=== PATIENT | female | born 1950 | race Caucasian/White ===

== ENCOUNTER → 2016-03-26 | Outpatient (CLI) | payer OTHER ==
--- NOTE | 2016-03-26 07:41 | DIAGNOSTIC IMAGING REPORT ---
(BARIUM SWALLOW) ESOPHAGUS CLINICAL HISTORY: Dysphagia. Reflux. COMPARISON STUDY: None FLUOROSCOPY TIME: 0.9 minutes. FINDINGS: 25 fluoroscopic images were obtained. There was a small hiatal hernia. A 13 mm barium tablet passed freely into the stomach. No esophageal mass or stricture was identified. A small hiatal hernia was noted. Mild esophageal dysmotility was noted. No reflux was elicited. IMPRESSION: 1. Mild esophageal dysmotility. 2. Small hiatal hernia. 3. No esophageal mass or stricture identified. Electronically signed by: Salazar Romero M.D. 03/26/2016 7:39 AM Dictated Date/Time: 03/26/2016 7:38 AM
== END | disposition home or self-care (01) ==
LOC: C.RAD 06:51
PROVIDERS: ATTEND Otolaryngology
DX: J38.7 Other diseases of larynx (principal); E04.2 Nontoxic multinodular goiter